=== PATIENT | male | born 1945 | race Caucasian/White ===

== ENCOUNTER → 2016-03-07 | Outpatient (CLI) | payer MEDICARE ==
--- NOTE | 2016-03-07 16:50 | XR ---
EXAMINATION TYPE: XR chest 2V DATE OF EXAM: 03/07/2016 4:00 PM COMPARISON: Prior chest x-ray January HISTORY: Cough TECHNIQUE: Frontal and lateral views of the chest are obtained. FINDINGS: Abnormal increased density present at the level of the left lung base. No pneumothorax or pleural effusion. Prominent lung lines suggests underlying COPD. Cardiomediastinal silhouette, pulmon art vascularity and will are stable. IMPRESSION: Left lower lobe pneumonia, follow up suggested.
== END | disposition home or self-care (01) ==
LOC: RADXRMAIN 15:49
PROVIDERS: ATTEND Family Medicine
DX: J18.1 Lobar pneumonia, unspecified organism (principal)
CPT/HCPCS: 71020

== ENCOUNTER → 2016-04-11 | Outpatient (CLI) | payer MEDICARE ==
--- NOTE | 2016-04-11 14:02 | XR ---
EXAMINATION TYPE: XR chest 2V DATE OF EXAM: 04/11/2016 1:25 PM HISTORY: J18.1 Lobar pneumonia. REFERENCE: Previous study dated 03/07/2016. FINDINGS: There continues to be airspace disease in the left lung base. The lungs are overinflated. I suspect a small left effusion. There is hypertrophic spondylosis and spondylosis deformans within th e dorsal spine. IMPRESSION: 1. COPD. 2. CONTINUING LEFT BASILAR INFILTRATE, SLIGHTLY IMPROVED FROM PREVIOUS.
== END | disposition home or self-care (01) ==
LOC: RADXRMAIN 13:11
PROVIDERS: ATTEND Family Medicine
DX: J44.9 Chronic obstructive pulmonary disease, unspecified (principal)
CPT/HCPCS: 71020

== ENCOUNTER 2017-05-20 21:38 | Emergency (ER) | payer MEDICARE ==
[2017-05-20 22:21] LABS: Basophils # (A) 0.1 k/uL (0-0.2); Basophils % (A) 1 %; Eosinophils # (A) 0.3 k/uL (0-0.7); Eosinophils % (A) 4 %; HCT 42.1 % (39.0-53.0); HGB 13.8 gm/dL (13.0-17.5); Lymphocytes # (A) 1.5 k/uL (1.0-4.8); Lymphocytes % (A) 18 %; MCH 29.4 pg (25.0-35.0); MCHC 32.8 g/dL (31.0-37.0); MCV 89.6 fL (80.0-100.0); Mean Platelet Volume 6.9; Monocytes # (A) 0.6 k/uL (0-1.0); Monocytes % (A) 7 %; Neutrophils # (A) 5.5 k/uL (1.3-7.7); Neutrophils % (A) 68 %; Platelet Count 181 k/uL (150-450); RDW 13.5 % (11.5-15.5); WBC 8.2 k/uL (3.8-10.6)
[2017-05-20 22:27] LABS: Partial Thromboplastin Time 24.3 sec (22.0-30.0); Prothrombin Time 9.8 sec (9.0-12.0)
--- NOTE | 2017-05-20 22:30 | XR ---
EXAMINATION TYPE: XR chest 1V portable DATE OF EXAM: 05/20/2017 COMPARISON: 04/11/2016 HISTORY: Chest pain TECHNIQUE: Single frontal view of the chest is obtained. FINDINGS: Heart and mediastinum are normal. Lungs are clear of consolidation. There are small linear density at the left lung base. There are chest leads. There is no pleural effusion. Bony thorax is i ntact. IMPRESSION: Normal heart. There is clearing of the mild atelectasis at the left lung base to a large extent compared to last exam.
[2017-05-20 22:31] LABS: ALT 20 U/L (21-72); AST 26 U/L (17-59); Albumin 4.2 g/dL (3.5-5.0); Alkaline Phosphatase 75 U/L (38-126); Anion Gap 14 mmol/L; Blood Urea Nitrogen 17 mg/dL (9-20); Calcium 9.3 mg/dL (8.4-10.2); Carbon Dioxide 26 mmol/L (22-30); Chloride 103 mmol/L (98-107); Creatine Kinase 92 U/L (55-170); Glucose 95 mg/dL (74-99); Magnesium 1.9 mg/dL (1.6-2.3); Potassium 4.6 mmol/L (3.5-5.1); Sodium 143 mmol/L (137-145); Total Bilirubin 0.5 mg/dL (0.2-1.3); Total Protein 7.1 g/dL (6.3-8.2)
[2017-05-20 22:45] LABS: Creatine Kinase MB 1.8 ng/mL (0.0-2.4); Troponin I <0.012 ng/mL (0.000-0.034)
[2017-05-20 23:03] VITALS: BP 177/72; PULSE 57; RESP 18; TEMP 97
--- NOTE | 2017-05-21 00:04 | ED ---
Chest Pain HPI - General Chief Complaint: Chest Pain Stated Complaint: Chest discomfort Time Seen by Provider: 05/20/17 22:09 Source: patient Mode of arrival: ambulatory Limitations: no limitations - History of Present Illness Initial Comments: 's patient is a 72-year-old man who presents to be evaluated for a "funny feeling" in his chest that is been going on intermittently for some time. He is not able to characterize it well. He states that it is not a pain. He is not having any associated symptoms, no dyspnea, diaphoresis, nausea or vomiting. MD Complaint: chest pain -: hour(s) Onset: during rest Pain Location: substernal Pain Radiation: none Improves With: nothing Worsens With: nothing Treatments Prior to Arrival: none - Related Data Home Medications Medication Instructions Recorded Confirmed Cholecalciferol [Vitamin D3] 1,000 unit PO DAILY 05/20/17 05/20/17 Levothyroxine Sodium [Synthroid] 100 mcg PO DAILY 05/20/17 05/20/17 Lisinopril [Zestril] 10 mg PO DAILY 05/20/17 05/20/17 Multivitamins, Thera [Multivitamin 1 tab PO DAILY 05/20/17 05/20/17 (formulary)] Sodium Chloride [Seth Ward] 1 spray EA NOSTRIL HS 05/20/17 05/20/17 Vitamin E 100 unit PO DAILY 05/20/17 05/20/17 Allergies Allergy/AdvReac Type Severity Reaction Status Date / Time No Known Allergies Allergy Verified 05/20/17 22:23 Review of Systems ROS Statement: Those systems with pertinent positive or pertinent negative responses have been documented in the HPI. ROS Other: All systems not noted in ROS Statement are negative. EKG Findings - EKG Results: EKG: interpreted by ERMD, sinus rhythm (Rate 70 bpm), normal axis, normal ST/T - TX, Pacemaker, Normal: Myocardial infarction: septal TX (old age or indeterminate) Past Medical History Past Medical History: COPD, Hyperlipidemia, Hypertension, Thyroid Disorder Additional Past Medical History / Comment(s): oral cancer. History of Any Multi-Drug Resistant Organisms: None Reported Additional Past Surgical History / Comment(s): 18 lymph nodes removed. 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 Past Psychological History: No Psychological Hx Reported Smoking Status: Former smoker Past Alcohol Use History: None Reported Past Drug Use History: None Reported General Exam Limitations: no limitations General appearance: alert, in no apparent distress Head exam: Present: atraumatic, normocephalic Eye exam: Present: normal appearance. Absent: scleral icterus, conjunctival injection Neck exam: Present: normal inspection, full ROM Respiratory exam: Present: normal lung sounds bilaterally. Absent: respiratory distress, wheezes, rales, rhonchi, stridor Cardiovascular Exam: Present: regular rate, normal rhythm, normal heart sounds. Absent: systolic murmur, diastolic murmur, rubs, gallop GI/Abdominal exam: Present: soft. Absent: distended, tenderness, guarding, rebound Extremities exam: Present: normal inspection, normal capillary refill. Absent: pedal edema, calf tenderness Back exam: Absent: CVA tenderness (R), CVA tenderness (L) Neurological exam: Present: alert Skin exam: Present: warm, dry, intact, normal color. Absent: rash Course Vital Signs 05/20/17 05/20/17 21:47 23:02 Temperature 97.5 F L 97.0 F L Pulse Rate 65 57 L Respiratory 16 18 Rate Blood Pressure 181/83 177/72 O2 Sat by Pulse 97 97 Oximetry Chest Pain MDM - MDM Patient is 72-year-old man with funny sensation in his chest. His initial workup is negative. Recommended admission for telemetry monitoring and serial cardiac enzymes, but this point, patient is declining. He states that he feels well and wants go home. He does agree to return should any of the symptoms recur or if he has any new symptoms. Otherwise going to follow up for further workup. Disposition Clinical Impression: Chest pain Disposition: HOME SELF-CARE Condition: Good Instructions: Chest Pain (ED) Is patient prescribed a controlled substance at d/c from ED?: No Referrals: Mateus Wilson MD [Primary Care Provider] - 1-2 days
== END 2017-05-21 00:17 | disposition home or self-care (01) ==
LOC: EC 21:38
DX: R07.2 Precordial pain (principal); I10 Essential (primary) hypertension; E07.9 Disorder of thyroid, unspecified; Z87.891 Personal history of nicotine dependence; Z85.818 Personal history of malignant neoplasm of other sites of lip, oral cavity, and pharynx; Z79.899 Other long term (current) drug therapy
CPT/HCPCS: 36415; 71045; 80053; 82550; 82553; 83735; 84484; 85025; 85610; 85730; 93005; 99285

== ENCOUNTER → 2017-12-03 | Outpatient (CLI) | payer MEDICARE ==
--- NOTE | 2017-12-03 08:16 | US ---
EXAMINATION TYPE: US duplex aorta DATE OF EXAM: 12/03/2017 COMPARISON: NONE CLINICAL HISTORY: Z13.9 Screening Abdominal aortic aneurysm. EXAM MEASUREMENTS: Abdominal Aorta: Proximal: obscured by overlying bowel gas Mid: 1.6cm Distal: 1.3cm Bifurcation: Rt: 1.0cm Lt: 1.2cm IMPRESSION: Limitation as there is nonvisualization of the upper abdominal aorta due to overlying bow el gas. Within the visualized portions of the mid and distal abdominal aorta as well as the common il iac arteries there is no sonographic evidence of aneurysm.
== END | disposition home or self-care (01) ==
LOC: RADUSWWP 07:42
PROVIDERS: ATTEND Family Medicine
DX: Z13.9 Encounter for screening, unspecified (principal)
CPT/HCPCS: 93979

== ENCOUNTER → 2018-01-30 | Outpatient (CLI) | payer MEDICARE ==
--- NOTE | 2018-01-30 17:10 | CT ---
EXAMINATION TYPE: CT neck chest w con DATE OF EXAM: 01/30/2018 COMPARISON: CT neck report from [facility] dated 07/01/2008, report dated 12/09/2008 HISTORY: Tongue cancer. CT DLP: 630.8 mGycm CONTRAST: Patient injected with 100ml mL of Isovue 300. TECHNIQUE: Axial images at 3 mm thick sections. Reconstructed images in the coronal plane and sagitt al plane are reviewed. FINDINGS: Limited CT sections are obtained the lung apices. Mild diffuse increased lung markings are in the anterior right upper lobe. Findings are nonspecific. Lymphangitic metastasis is not excluded. Infectious etiologies should also be considered CT neck: Patient is had a radical neck dissection on the left. The torus tubarius and fossa of Rosenm uller are normal. [employer] spaces are normal. Paranasal sinuses and mastoid air cells are clear. Right parotid gland is unremarkable. Left parotid gland appears resected. Right submandibular gland i s normal. Left submandibular gland is absent. Submental space is partially resected on the left. Para pharyngeal spaces are normal. No suspicious adenopathy is evident. The hypopharynx appears within normal limits. Vocal cord level appear symmetrical. Thyroid is not identified. Degenerative changes are within the cervical spine. IMPRESSIONS: 1. No suspicious changes to suggest recurrent tongue cancer. 2. Status post radical left neck dissection. 3. Focal infiltrate right upper anterior lobe nonspecific. Findings could be of an infectious etiolog y. Lymphangitic metastasis should be considered. EXAMINATION TYPE: CT neck chest w con DATE OF EXAM: 01/30/2018 COMPARISON: Report dated 12/08/2008 from [facility], report dated 12/09/2008. HISTORY: Tongue cancer. CT DLP: 630.8 mGycm, Automated exposure control for dose reduction was used. CONTRAST: Performed injected with 100ml mL of Isovue 300. TECHNIQUE: Axial images were obtained at 5 mm thick sections. Reconstructed images are reviewed on [employer] computer in the coronal plane. FINDINGS: Portion of the thyroid visualized is normal. There is a 0.5 cm nodule within the left lung base within the lingula. Series 6 image 50. There is a 0.5 cm nodule within the anterior right middle lobe. Series 6 image 38. There is a nonspecific infilt rate in the anterior right upper lobe. This could be infectious etiology. Lymphangitic metastasis is not excluded. No enlarged mediastinal or hilar adenopathy is evident. There are small shotty lymph nodes. Aortic region pretracheal space and subcarinal space. These are not enlarged by CT criteria. The ascending a guero diameter at the level of the main pulmonary artery is 3.2 cm. The main pulmonary artery diamete r at the bifurcation is 2.[address] sections are obtained through the upper abdomen. Abdomen is essentially unremarkable. Punc umaña gallstone is not excluded. IMPRESSIONS: 1. Nonspecific area of increased density within the anterior right upper lobe. This has a reticular n odular type appearance. Infectious etiology could be considered. This is more focal although lymphang itic metastasis cannot be excluded. Couple of additional small nodules are identified on discussed ab ove. 2. Suspicious areas for metastatic disease are not otherwise evident
== END | disposition home or self-care (01) ==
LOC: RADCTMAIN 14:11
PROVIDERS: ATTEND Otolaryngology
DX: R91.8 Other nonspecific abnormal finding of lung field (principal); C01 Malignant neoplasm of base of tongue
CPT/HCPCS: 82565; 84520; 70491; 71260; 36415; Q9967

== ENCOUNTER → 2018-10-21 | Outpatient (CLI) | payer MEDICARE ==
--- NOTE | 2018-10-22 04:24 | CT ---
EXAMINATION TYPE: CT neck chest w con DATE OF EXAM: 10/21/2018 COMPARISON: 01/30/2018 HISTORY: 73-year-old male Follow up for oral/tongue cancer. TECHNIQUE: Contiguous axial scanning of the neck and chest performed with IV Contrast, patient inject ed with 100ml mL of Isovue 300. Coronal/sagittal reconstructions performed. CT DLP: 593.4 mGycm Automated exposure control for dose reduction was used. FINDINGS: NECK: Visualized intracranial structures, orbits and globes, and left mastoid air cells appear clear. Round density, likely mucosal retention cyst measuring 9 mm left upper nasal cavity. Small amount of trapped fluid in inferior right mastoid air cells and trace mucosal thickening ethmoi d air cells and maxillary sinuses. Redemonstrated postsurgical changes of left neck dissection and likely partial tongue resection. Nasopharynx is clear. Stable slight asymmetric effacement of the left vallecular space. Oropharynx otherwise clear. Epiglottis and prevertebral soft tissues are clear. Gliotic and subglottic structures as well as the tracheal column appear clear. Minimal thyroid tissue is demonstrated. Left submandibular gland appears absent. Right submandibular gland is atrophic. The bilateral parotid glands appear atrophic. No suspicious cervical lymphadenopathy or discrete mass is identified. CHEST: Heart normal size without pericardial effusion. Mild coronary vessel calcifications are demonstrated. Aorta normal caliber with conventional arch vessel branching anatomy. Scattered nonenlarged mediastinal lymph nodes. No thoracic lymphadenopathy by CT size criteria. 4 mm peripheral right lower lobe pulmonary nodule, axial image 42 not well seen previously. Groundglass interstitial changes previously seen in the anterior right upper lobe have improved. Mini mal residual reticular densities remain. 4 mm right middle lobe pulmonary nodule is stable for 9 months. Mild strandy atelectasis without consolidation or pleural effusion. Tiny hiatal hernia. Otherwise, visualized upper abdomen shows a stable subcentimeter hypodensity, lik sandro cyst posterior right hepatic dome. Bones: Mild endplate spondylosis mid to lower thoracic spine. IMPRESSION: NECK: 1. REDEMONSTRATION OF POSTSURGICAL CHANGES OF LEFT NECK DISSECTION AND LIKELY PARTIAL TONGUE RESECTIO N. 2. NO SUSPICIOUS MASS OR CERVICAL LYMPHADENOPATHY TO SUGGEST LOCOREGIONAL RECURRENCE. 3. A SMALL AMOUNT OF TRAPPED FLUID INFERIOR RIGHT MASTOID AIR CELLS. CORRELATE FOR ANY MASTOID PAIN T O EXCLUDE MASTOIDITIS. 4. A 9 MM ROUND STRUCTURE IN THE UPPER LEFT NASAL CAVITY PROBABLY REPRESENTS A MUCOSAL RETENTION CYST . CHEST: 1. IMPROVEMENT IN THE PREVIOUS GROUNDGLASS AND INTERSTITIAL DENSITIES ANTERIOR RIGHT UPPER LOBE. SOME MINIMAL RESIDUAL RETICULAR DENSITIES REMAIN AND COULD REPRESENT AREAS OF INTERSTITIAL SCARRING NOW. 2. STABLE 4 MM RIGHT MIDDLE LOBE PULMONARY NODULE FOR 9 MONTHS. A 4 MM RIGHT LOWER LOBE PULMONARY NOD ULE WAS NOT WELL SEEN PREVIOUSLY. ADDITIONAL SHORT INTERVAL FOLLOW-UP RECOMMENDED.
== END ==
LOC: RADCTMAIN 11:55
PROVIDERS: ATTEND Otolaryngology
DX: Z08 Encounter for follow-up examination after completed treatment for malignant neoplasm (principal); R93.89 Abnormal findings on diagnostic imaging of other specified body structures; R91.8 Other nonspecific abnormal finding of lung field; R91.1 Solitary pulmonary nodule; Z85.810 Personal history of malignant neoplasm of tongue; Z92.3 Personal history of irradiation
CPT/HCPCS: 82565; 84520; 70491; 71260; 36415; Q9967

== ENCOUNTER → 2019-08-31 | Outpatient (CLI) | payer MEDICARE ==
[2019-08-31 13:38] LABS: Basophils % (A) 1 %; Eosinophils # (A) 0.2 k/uL (0-0.7); Eosinophils % (A) 3 %; HCT 42.5 % (39.0-53.0); HGB 13.2 gm/dL (13.0-17.5); Lymphocytes % (A) 16 %; MCH 29.8 pg (25.0-35.0); MCHC 31.1 g/dL (31.0-37.0); MCV 95.9 fL (80.0-100.0); Mean Platelet Volume 7.2; Monocytes # (A) 0.4 k/uL (0-1.0); Monocytes % (A) 6 %; Neutrophils # (A) 4.5 k/uL (1.3-7.7); Neutrophils % (A) 73 %; Platelet Count 165 k/uL (150-450); RBC 4.44 m/uL (4.30-5.90); RDW 13.8 % (11.5-15.5); WBC 6.1 k/uL (3.8-10.6)
--- NOTE | 2019-08-31 13:48 | US ---
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 EXAM MEASUREMENTS: RIGHT: Peak Systolic Velocity (PSV) cm/sec ----- Right CCA: 74.7 ----- Right ICA: 140 ----- Right ECA: 141 ICA/CCA ratio: 1.8 RIGHT: End Diastole cm/sec ----- Right CCA: 16.3 ----- Right ICA: 25.3 ----- Right ECA: 16.3 LEFT: Peak Systolic Velocity (PSV) cm/sec ----- Left CCA: 118 ----- Left ICA: 124 ----- Left ECA: 215 ICA/CCA ratio: 1.1 LEFT: End Diastole cm/sec ----- Left CCA: 23.1 ----- Left ICA: 29.9 ----- Left ECA: 2.7 VERTEBRALS (direction of flow): Right Vertebral: Antegrade Left Vertebral: Antegrade Rhythm: Normal Moderate amount of plaque visualized bilaterally. Elevated velocities in right ICA, right ECA, and le ft ECA IMPRESSION: Moderate plaque without evidence for hemodynamically significant stenosis. Criteria for Assigning % of Stenosis / Diameter reduction (Estimation based on the indirect measurements of the internal carotid artery velocities (ICA PSV). 1. Normal (no stenosis)=ICA PSV < 125 cm/s: ratio < 2.0: ICA EDV<40 cm/s. 2. Less than 50% stenosis=ICA PSV < 125 cm/s: ratio < 2.0: ICA EDV<40 cm/s. 3. 50 to 69% stenosis=ICA PSV of 125 to 230 cm/s: ration 2.0 ? 4.0: ICA EDV 40-100 cm/s. 4. Greater than 70% stenosis to near occlusion= ICA PSV > 230 cm/s: ratio > 4.0: ICA EDV > 100 cm/s. 5. Near occlusion= ICA PSV velocities may be low or undetectable: variable ratio and ICA EDV. 6. Total occlusion=unable to detect flow.
[2019-08-31 13:50] LABS: ALT 11 U/L (4-49); AST 23 U/L (17-59); African American GFR (CKD) >90 (>60 ml/min/1.73 sqM); Albumin 4.4 g/dL (3.5-5.0); Alkaline Phosphatase 62 U/L (38-126); Anion Gap 7 mmol/L; Blood Urea Nitrogen 20 mg/dL (9-20); Calcium 9.4 mg/dL (8.4-10.2); Carbon Dioxide 30 mmol/L (22-30); Chloride 102 mmol/L (98-107); Glucose 98 mg/dL (74-99); Non-African American GFR(CKD) 84 (>60 ml/min/1.73 sqM); Potassium 4.9 mmol/L (3.5-5.1); Sodium 139 mmol/L (137-145); Total Bilirubin 0.7 mg/dL (0.2-1.3); Total Protein 6.8 g/dL (6.3-8.2)
[2019-08-31 14:07] LABS: T4, Free (Free Thyroxine) 0.66 ng/dL (0.78-2.19)
--- NOTE | 2019-08-31 14:29 | CT ---
EXAMINATION TYPE: CT brain wo/w con DATE OF EXAM: 08/31/2019 COMPARISON: HISTORY: Idiopathic epilepsy CT DLP: 2180.80 mGycm Automated exposure control for dose reduction was used. CONTRAST: CT scan of the head is performed without and with IV Contrast, patient injected with 100 ml mL of Iso pancho 300. FINDINGS: There is no abnormal enhancing mass or midline shift identified. The ventricles and sulci are within normal limits in size. The globes are intact and the visualized sinuses are clear. Mild inflammator y change present in the mastoid air cells on the right. Periventricular white matter shows patchy and confluent low attenuation. There is cortical atrophy. Cerebral vascular calcifications are present. No abnormal enhancement on contrast administration. IMPRESSION: Negative contrast enhanced head CT exam, no acute abnormality, age-related changes of atrophy and chr onic small vessel ischemia, correlate for mastoiditis.
[2019-08-31 15:04] LABS: Cholesterol 182 mg/dL (<200); HDL Cholesterol 41 mg/dL (40-60); LDL Cholesterol,Calculated 121 mg/dL (0-99); Triglycerides 101 mg/dL (<150)
== END | disposition home or self-care (01) ==
LOC: RADUSWWP 12:10
PROVIDERS: ATTEND Family Medicine
DX: I65.29 Occlusion and stenosis of unspecified carotid artery (principal); G40.309 Generalized idiopathic epilepsy and epileptic syndromes, not intractable, without status epilepticus; Z20.9 Contact with and (suspected) exposure to unspecified communicable disease; E03.9 Hypothyroidism, unspecified
CPT/HCPCS: 86803; 84439; 84481; 80061; 80053; 84443; 85025; 93880; 70470; 36415; Q9967